=== PATIENT | male | born 1990 | race Caucasian/White ===

== ENCOUNTER 2019-01-07 18:09 | Inpatient (IN) | payer OTHER ==
[~2019-01-07 18:09] MED LIST: ISOVUE-370 76%-LOCM 1 ML ONE
[2019-01-07] MEDS ORDERED: Lorazepam 2 MG/ML VIAL ONE ×2 (18:38→20:38)
[2019-01-07 18:41] LABS: #Eosinphils 0.1 thou/uL (0.0-0.7); #Lymphocytes 0.7 thou/uL (1.20-3.40); #Monocytes 0.7 thou/uL (0.11-0.59); #Neutrophils 5.6 thou/uL (1.40-6.50); %Basophils 0.3 % (0.0-1.0); %Eosinophils 1.8 % (0.0-10.0); %Lymphocytes 10.2 % (21.0-51.0); %Monocytes 10.2 % (0.0-10.0); %Neutrophils 77.4 % (42.0-75.0); Hemoglobin 14.3 g/dL (14.0-18.0); Mean Corpuscular HGB CONC 34.8 g/dL (32.0-36.0); Mean Corpuscular Hemoglobin 31.4 pg (27.0-31.0); Mean Corpuscular Volume 90.3 fL (78.0-98.0); Mean Platelet Volume 7.7 fL (7.4-10.4); Platelet Count 185 thou/uL (130-400); RBC Distribution Width 11.5 % (11.5-14.5); Red Blood Cell (RBC) Count 4.55 mill/uL (4.70-6.10); White Blood Cell (WBC) Count 7.3 thou/uL (4.8-10.8)
[2019-01-07 19:04] LABS: Medtox Reader # READER 4
[2019-01-07 19:05] LABS: Amphetamine Not Detected (NotDetected); Barbiturates Screen Not Detected (NotDetected); Benzodiazepine Screen Not Detected (NotDetected); Cocaine Metabolite Screen Not Detected (NotDetected); Medtox Control Line Valid? VALID (VALID); Methadone Not Detected (NotDetected); Methamphetamine Not Detected (NotDetected); Opiate Screen Detected (NotDetected); Oxycodone Screen Not Detected (NotDetected); Phencyclidine (PCP) Not Detected (NotDetected); THC/Cannabinoid Screen Not Detected (NotDetected); Tricyclic Screen Not Detected (NotDetected)
[2019-01-07 19:05] LABS: ALT (SGPT) 40 U/L (8-55); AST (SGOT) 72 U/L (5-34); Alkaline Phosphatase 67 U/L (40-150); Anion Gap 13 mmol/L (10-20); BUN (Urea Nitrogen) 10 mg/dL (8.9-20.6); Bilirubin, Total 0.4 mg/dL (0.2-1.2); CK (CPK) 2278 U/L (30-200); Calc. Creatinine Clearance 0 mL/min (70-130); Calcium 8.9 mg/dL (7.8-10.44); Carbon Dioxide 23 mmol/L (22-29); Chloride 109 mmol/L (98-107); Estimated GFR-MDRD Greater than 90; Globulin 2.4 g/dL (2.4-3.5); Glucose 92 mg/dL (70-105); Protein, Total 6.4 g/dL (6.0-8.3); Sodium 141 mmol/L (136-145)
--- NOTE | 2019-01-07 19:48 | RAD ---
FRONTAL RADIOGRAPH CHEST 01/07/19 COMPARISON: None. HISTORY: Cough and chest pain. FINDINGS: Heart and mediastinal contours within normal limits. No pneumothorax, pleural fluid, focal consolidat ion, or alveolar edema. IMPRESSION: No acute findings. POS: [facility]
[2019-01-07] MEDS ORDERED: Zolpidem Tartrate 5 MG TAB PO PRN (22:33)
[2019-01-07] MEDS ORDERED: Ondansetron PF 4 MG/2 ML Vial IVP PRN (22:33)
--- NOTE | 2019-01-07 23:53 | HP ---
ADMITTING COMPLAINT: Chest pain. HISTORY OF PRESENT ILLNESS: This is a 28-year-old male complaining of chest pain. States that he woke up this morning with severe significant cough, shortness of breath, and chest pain. 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 Patient is incarcerated with the [place] [facility]. States that he has no other prior medical history of diabetes, hypertension, hyperlipidemia, or coronary artery disease. Denies any nausea, vomiting, diarrhea, constipation, fevers, chills, or shortness of breath, but does attest to chest pains and then occasionally in the last day or two, chest pain with shortness of breath due to exertion. Patient also states that he is unable to walk because of his foot problem and uses crutches for the last three months. Patient states that he has had a progressive worsening of his symptoms, so decided to ask the police lieutenant patrol to bring him to the ER. Patient at this point in time was seen in the ER. No family at bedside. The officers were at bedside. All questions answered. ALLERGIES: TO PENICILLIN, STATES THAT HE GETS HIVES AND HIS THROAT SWELLS UP WHEN HE DOES GET PENICILLIN. SOCIAL HISTORY: Nondrinker, nonsmoker. FAMILY HISTORY: Positive for hypertension, hyperlipidemia, diabetes mellitus, and coronary artery disease. HOME MEDICATIONS: See MAR. REVIEW OF SYSTEMS: All systems reviewed, pertinent positive in the HPI, otherwise negative. PHYSICAL EXAMINATION: GENERAL: Patient is lying in bed with cuffs comfortably. No acute discomfort. VITAL SIGNS: Blood pressure is 128/88, respiratory rate of 18, pulse of 88, O2 saturation 98% on room air, and temperature of 98. HEENT: Pupils equal, round, and reactive to light and accommodation. Oral cavity, moist and pink. Normocephalic and atraumatic. NECK: Supple and mobile. Nontender thyroid appreciated. LUNGS: Reveal bilateral lower lobe inspiratory crackles, however, otherwise clear to auscultation bilaterally. No increase in AP diameter. No respiratory distress. CARDIOVASCULAR: Reveals a slightly borderline tachycardia. S1, S2. No murmurs, rubs, or gallops appreciated. ABDOMINAL: Positive bowel sounds. Soft, nontender, and nondistended. EXTREMITIES: 2+ peripheral pulses noted. Trace pitting edema in bilateral lower extremities. NEUROLOGIC: Cranial nerves 2 through 12 intact. No loss of motor or sensory function. LABORATORY DATA: CBC within normal limits. Basic metabolic panel within normal limits. However, creatine kinase was slightly elevated at . Toxicology screen positive for opioids. No other abnormalities. ASSESSMENT AND PLAN: 1. Rhabdo, questionable. 2. Chest pain. 3. Cardiomyopathy. PLAN: 1. At this point in time, we will admit the patient to observation service. We will obtain echocardiogram to rule out any cardiomyopathy. We will also trend troponins to check for any ACS. 2. We will consult Cardiology as well. 3. Labs in the morning. 4. Patient wishes to remain a full code. 5. We will resume home medications when home med reconciliation is completed. 6. For now, we will initiate a workup mentioned above and adjust the plan of care as the patient's condition and lab results result. Case and plan discussed with the patient at length. He understood and agreed with this plan. Job ID: [id number]
[2019-01-08 00:45] LABS: Troponin I Less than 0.010 ng/mL (< 0.028)
[2019-01-08] MEDS ORDERED: Sodium Chloride 0.9% 1,000 ML IV SCH (01:35)
[2019-01-08] MEDS: Acetaminophen 325 MG TAB PO PRN ×2 (02:06→15:19)
[2019-01-08 04:12] VITALS: BMI 30.7
[2019-01-08 06:02] LABS: Anion Gap 11 mmol/L (10-20); BUN (Urea Nitrogen) 7 mg/dL (8.9-20.6); CK (CPK) 1463 U/L (30-200); Calc. Creatinine Clearance 177 mL/min (70-130); Carbon Dioxide 25 mmol/L (22-29); Chloride 108 mmol/L (98-107); Estimated GFR-MDRD Greater than 90; Glucose 100 mg/dL (70-105); Potassium 3.8 mmol/L (3.5-5.1); Sodium 140 mmol/L (136-145)
[2019-01-08 06:12] LABS: Band 2 % (5-11); Eosinophils 1 % (0-10); Lymphocytes 23 % (21-51); MDiff Complete? YES; Mean Corpuscular HGB CONC 35.3 g/dL (32.0-36.0); Mean Corpuscular Hemoglobin 31.6 pg (27.0-31.0); Mean Corpuscular Volume 89.6 fL (78.0-98.0); Mean Platelet Volume 8.2 fL (7.4-10.4); Monocytes 9 % (0-10); Neutrophil 65 % (42-75); Platelet Count 182 thou/uL (130-400); Platelet Morphology Comment Appears Adequate; RBC Distribution Width 11.6 % (11.5-14.5); RBC Morphology Normal; Red Blood Cell (RBC) Count 4.43 mill/uL (4.70-6.10); White Blood Cell (WBC) Count 4.9 thou/uL (4.8-10.8)
[2019-01-08] MEDS: Aspirin 81 mg Enteric Coated Tablet PO SCH (08:51)
[2019-01-08] MEDS: Heparin 5,000 UNITS/ML VIAL SC SCH ×2 (08:51→21:20)
--- NOTE | 2019-01-08 09:31 | CT ---
CT ANGIOGRAM OF CHEST 01/07/19 COMPARISON: None. HISTORY: Chest pain, tachycardia and abnormal EKG. TECHNIQUE: Axial CT imaging at 2.5 mm intervals through the chest with IV contrast using a CT angiogram protocol . Coronal and oblique sagittal 3D reformatted imaging obtained. FINDINGS: No axillary, hilar or mediastinal lymphadenopathy. The imaged upper abdomen appears unremarkable. No pleural, pericardial, or mediastinal fluid is seen. There is no pulmonary arterial filling defect involving the pulmonary arterial trunk or either main p ulmonary artery. Distal pulmonary arteries are slightly limited on the basis of motion artifact, part icularly within the lung bases. No convincing evidence for pulmonary arterial embolism. The lung parenchyma demonstrates no acute abnormality on either side. No endobronchial lesion is evid ent. Review of the osseous structures demonstrates no acute osseous abnormality. IMPRESSION: No evidence for a central pulmonary arterial embolism. POS: [facility]
[2019-01-08] MEDS ORDERED: Sodium Chloride 0.9% 500 ML IV SCH (10:30)
[2019-01-08] MEDS: Benzonatate 100 MG CAP PO SCH ×2 (11:24→21:19)
--- NOTE | 2019-01-08 12:02 | CON ---
DATE OF CONSULTATION: PRIMARY CARE PHYSICIAN: Unknown primary care doctor. MAIN PEDIATRIC CARDIOLOGIST: Riya Gayle MD REASON FOR CARDIOLOGY CONSULT: Chest pain. HISTORY OF PRESENT ILLNESS: Mr. Weller is a 28-year-old male with a significant history of osteomyelitis to the right fourth finger and ingrown nail to the bilateral first toes. The patient is incarcerated with [place] [facility]. He started having chest pain from Wednesday morning around 4 o'clock, heaviness to the mediastinal area, which radiates to the left chest. He started having severe cough. At this moment, he has still continued having the severe cough. At this moment, he also complained of a headache and weakness from yesterday. He denied any dizziness, lightheadedness, numbness to the left arm, or any other cardiac complaints. He does not have any medical history; however, he had attempted several suicide before with overdose and severe EtOH abuse. He never had seen by a welfare project manager before. PAST MEDICAL HISTORY: Osteomyelitis to the right fourth finger. He has a major depression before. At this moment, the patient denies any suicide desire. At this moment also, the patient has 2 officers at the bedside. PAST SURGICAL HISTORY: Amputation of the right fourth finger and ingrown toe removed to the both first toes. FAMILY HISTORY: The patient's father had a history of hypertension. The patient's mother had a disease due to the cancer. The patient's sister has hypertension after the patient's sister given . SOCIAL HISTORY: He is single. He used to chew tobacco 2 cans a day. He used to drink a lot, heavy drinker prior to stay in the care home. He denied illicit drug abuse. ALLERGIES: HE IS ALLERGIC TO PENICILLIN. HOME MEDICATIONS: None. REVIEW OF SYSTEMS: A 12-point review of systems unless otherwise mentioned in the HPI. At this moment, the patient does not have any suicide desire at this moment. He complained of the constipation. PHYSICAL EXAMINATION: VITAL SIGNS: Blood pressure 110/62, temperature 98.9, pulse is 115 with sinus tach, respiratory rate 26, and O2 saturation 99% with room air. GENERAL: The patient is alert and oriented x4. Not in acute distress, but the patient had a severe cough at this moment. HEENT: Normocephalic and atraumatic. Eyes, extraocular muscle movement intact. ENT and mouth, oral and nasal mucosa are moist without lesion. RESPIRATORY: Clear to auscultate bilaterally. He continues having severe cough. CARDIOVASCULAR: Regular rate and rhythm. Normal S1 and S2. There are no S3 or S4. No significant murmur, hives, or thrill noted. 2+ pulses in the bilateral upper and lower extremities. No edema. ABDOMEN: Soft and nontender. No mass to palpitate. Bowel sounds are positive. Carotid pulses are present without bruits or thrill. EXTREMITIES: The patient is able to move all extremities without any difficulties. The patient denies any claudication. NEUROLOGIC: The patient is alert and oriented x4. Nonfocal. PSYCHIATRIC: The patient's mood is appropriate. LABORATORY DATA: WBC 4.9, hemoglobin 14.0, hematocrit 39.7, and platelet 182. Sodium 140, potassium 3.8, BUN 7, creatinine 0.82, AST 72, and ALT 40. Creatine kinase is at 2278, 2022, and 1463. Troponin is negative. Chest x-ray show no acute finding. The patient had a chest thoracic CTA, which shows no evidence for central pulmonary arterial embolism. ASSESSMENT AND PLAN: 1. Atypical chest pain. With elevated creatine kinase, the patient's EKG is normal. The patient has a normal troponin level and the patient is having more pain with palpation to the mediastinal area and with cough. The patient's symptoms could be from musculoskeletal in nature. If the patient's echocardiogram showed normal, the patient is possibly able to discharge today. 2. Elevated creatine kinase. We like to go ahead to give 500 mL normal saline bolus again. 3. Tachycardia. The patient's telemetry record shows that the patient has been in sinus tach with heart rate of 100 to 110s. We would like to go ahead to give 500 mL bolus in this moment. 4. Depression. At this moment, the patient's depression is stable according to the patient's health and the patient does not have any desire for suicide or harm himself. Thank you very much for allowing the Cardiology Service to participate in the care of this patient. We will follow along the patient's care team and make further recommendations as appropriate. Job ID: [id number]
--- NOTE | 2019-01-08 12:58 | RAD ---
PORTABLE CHEST: DATE: 01/08/2019. PROVIDED CLINICAL HISTORY: Chest pain. FINDINGS: Comparison 01/07/2019. Cardiac and mediastinal silhouette is within normal limits. No focal consolid ation, pleural fluid, or pneumothorax apparent. IMPRESSION: No evidence for an acute cardiopulmonary process. POS: [facility]
[2019-01-08] MEDS: Morphine 4 MG/ML VIAL SLOW IVP PRN (16:58)
--- NOTE | 2019-01-08 17:22 | PDOC.PN ---
- Subjective Encounter Start Date: 01/08/19 Encounter Start Time: 17:20 Pt seen for followup re: sepsis. Chest pain is better. No nausea or vomiting. - Objective Resuscitation Status - Order Detail: 01/07/19 22:33 Resuscitation Status Routine Resuscitation Status: FULL: Full Resuscitation Discussed with: patient MAR Reviewed: Yes Vital Signs & Weight: Vital Signs (12 hours) Temp Pulse Resp BP Pulse Ox 01/08/19 16:00 99.9 F H 101 H 26 H 110/62 96 01/08/19 12:00 100.4 F H 112 H 24 H 113/65 97 01/08/19 08:00 98.9 F 115 H 26 H 110/62 99 Weight Weight 201 lb 12.8 oz I&O: 01/07/19 01/08/19 01/09/19 06:59 06:59 06:59 Intake Total 240 Balance 240 Result Diagrams: 01/08/19 05:03 01/08/19 05:03 EKG Reviewed by me: Yes (Tele: sinus tachycardia) Phys Exam - Physical Examination Constitutional: NAD HEENT: moist MMs, sclera anicteric, oral pharynx no lesions, 2+ tonsils Neck: no nodes, no JVD, supple, full ROM Respiratory: clear to auscultation bilateral Cardiovascular: no rub S1, S2, tachy, reg Gastrointestinal: soft, non-tender, no distention, positive bowel sounds Neurological: moves all 4 limbs Psychiatric: normal affect, A&O x 3 Deviation from normal: wounds as documented Dx/Plan (1) Sepsis Code(s): A41.9 - SEPSIS, UNSPECIFIED ORGANISM Status: Acute Comment: Likely due to toe infection. Will start empiric antibiotics. Will order blood cultures and urine studies. Will check X-rays of toes to r/o osteomyelitis. (2) Chest pain Code(s): R07.9 - CHEST PAIN, UNSPECIFIED Status: Acute Comment: appreciate cardiology service input (3) Depression Code(s): F32.9 - MAJOR DEPRESSIVE DISORDER, SINGLE EPISODE, UNSPECIFIED Status : Chronic Comment: moderate, stable - Plan * . Review of Systems - Review of Systems Constitutional: fever. negative: chills, sweats, weakness, malaise Cardiovascular: chest pain. negative: palpitations, orthopnea, paroxysmal nocturnal dyspnea, edema, light headedness Gastrointestinal: negative: Nausea, Vomiting, Abdominal Pain, Diarrhea, Constipation, Melena, Hematochezia Genitourinary: negative: Dysuria, Frequency, Incontinence, Hematuria, Retention Musculoskeletal: Foot Pain Neurological: negative: Weakness, Numbness, Incoordination, Change in Speech, Confusion, Seizures - Medications/Allergies Allergies/Adverse Reactions: Allergies Allergy/AdvReac Type Severity Reaction Status Date / Time Penicillins Allergy Verified 01/08/19 01:44 Medications: Current Medications Acetaminophen (Tylenol) 650 mg PO Q4H PRN PRN Reason: Headache/Fever/Mild Pain (1-3) Last Admin: 01/08/19 15:19 Dose: 650 mg Albuterol/Ipratropium (Duoneb) 3 ml NEB [id number] PRN PRN Reason: SOB &/or Wheezing Aspirin (Ecotrin) 81 mg PO DAILY [facility] Last Admin: 01/08/19 08:51 Dose: 81 mg Benzonatate (Tessalon) 100 mg PO 0400,1200,2000 [facility] Last Admin: 01/08/19 11:24 Dose: 100 mg Heparin Sodium (Porcine) (Heparin) 5,000 units SC BID [facility] Last Admin: 01/08/19 08:51 Dose: 5,000 units Vancomycin HCl 1 gm/ Device 200 mls @ 200 mls/hr IVPB Q12H [facility] Miscellaneous Medication (Pharmacy To Dose) 1 each IVPB ONE PRN PRN Reason: Pharmacy to dose Morphine Sulfate (Morphine) 2 mg SLOW IVP Q6H PRN PRN Reason: Moderate to Severe Pain (6-10) Last Admin: 01/08/19 16:58 Dose: 2 mg Ondansetron HCl (Zofran) 4 mg IVP Q6H PRN PRN Reason: Nausea/Vomiting Sodium Chloride (Flush - Normal Saline) 10 ml IVF Q12HR PRN PRN Reason: Saline Flush Last Admin: 01/08/19 16:58 Dose: 10 ml Zolpidem Tartrate (Ambien) 5 mg PO HSPRN PRN PRN Reason: Insomnia
[2019-01-08] MEDS ORDERED: Vancomycin HCl 1 GM in Premix Bag 1 BAG IVPB SCH (17:30)
[2019-01-08] MEDS: Vancomycin HCl 1.75 GM in Sodium Chloride 0.9% 500 ML IVPB SCH (19:49)
[2019-01-09] MEDS: Benzonatate 100 MG CAP PO SCH ×3 (00:35→20:14)
[2019-01-09] MEDS: Acetaminophen 325 MG TAB PO PRN ×5 (00:35→15:46)
[2019-01-09 01:34] LABS: Bilirubin Negative (Negative); Blood, Urine Negative (Negative); Clarity CLEAR (Clear); Glucose, Urine (Dipstick) Negative (Negative); Leukocyte Negative (Negative); Nitrite Negative (Negative); Protein, Urine (Dipstick) Negative (Neg-Trace); Specific Gravity, Urine 1.015 (1.002-1.036); Urobilinogen 0.2 mg/dL (0.2-1.0); pH, Urine 6.5 (5.0-9.0)
[2019-01-09 01:36] LABS: Bacteria/HPF None Seen HPF (None Seen); Hyaline Casts/LPF 0-3 HYALINE CAST LPF (0-3 Hyaline); Pathc Cast-AUWi Flag 0.13 (0-2.49); RBC/HPF 0-3 HPF (0-3); Squamous Epithelial None Seen HPF (0-3); WBC/HPF None Seen HPF (0-3)
[2019-01-09 01:38] LABS: Urine Culture Reflex No No
[2019-01-09] MEDS: Morphine 4 MG/ML VIAL SLOW IVP PRN ×2 (03:06→15:46)
[2019-01-09] MEDS: Vancomycin HCl 1.75 GM in Sodium Chloride 0.9% 500 ML IVPB SCH ×3 (03:09→18:01)
[2019-01-09] MEDS: Heparin 5,000 UNITS/ML VIAL SC SCH ×2 (08:20→20:14)
[2019-01-09] MEDS: Aspirin 81 mg Enteric Coated Tablet PO SCH (08:21)
--- NOTE | 2019-01-09 08:44 | CON ---
DATE OF CONSULTATION: 01/08/2019 ADDENDUM: Please refer to the notes dictated by my nurse practitioner, Robyn Lock. INDICATION FOR CONSULTATION: Chest pain. HISTORY OF PRESENT ILLNESS: This is a very unfortunate 28-year-old gentleman who is incarcerated at this time, presented with chest pain. He has been using crutches to ambulate. He also developed a recent cough. He has been coughing significantly. When he coughs is when he does get the chest pain, excruciating pain when he coughs and also has pain to palpation in the anterior chest wall. His EKG is unremarkable. Cardiac enzymes are negative. However, he did have a CK of over 2000, which most likely is musculoskeletal in origin since the troponin I is normal and also his EKG is unremarkable. He had an echocardiogram today, which also shows a normal ejection fraction with trace mitral and tricuspid valve regurgitation. No other significant abnormalities were noted. At this time, his chest pain is felt to be noncardiac in nature and no further cardiac workup is indicated at this time. PAST MEDICAL HISTORY: Please refer to the notes dictated by my nurse practitioner. SOCIAL HISTORY: Please refer to the notes dictated by my nurse practitioner. FAMILY HISTORY: Please refer to the notes dictated by my nurse practitioner. REVIEW OF SYSTEMS: Please refer to the notes dictated by my nurse practitioner. MEDICATIONS: Please refer to the notes dictated by my nurse practitioner. ALLERGIES: PLEASE REFER TO THE NOTES DICTATED BY MY NURSE PRACTITIONER. PHYSICAL EXAMINATION: GENERAL: Reveals a well-developed, well-nourished gentleman. VITAL SIGNS: Blood pressure is 110/62, heart rate is 90 to 110, temperature is 98.9, and respiratory rate is 26. HEENT: Unremarkable. CHEST: Clear to auscultation. Also, chest shows pain to palpation of the left anterior chest wall. CARDIOVASCULAR: Reveals a regular rate and rhythm. Normal S1 and S2. No S3 or S4 noted. EXTREMITIES: Show no clubbing or cyanosis. The distal tip of the right ring finger has been removed, appears to be well healed. His both great toes have infections, but do not appear to be gangrenous. It appears to be relatively tender. The one around the edges of the cuticle areas appears to be infected. Also, the toenail has been removed from the right great toe. Otherwise, he is unremarkable. Pulses are present. NEUROLOGIC: He appears to be intact. He is in the bed. As I noted before, he is incarcerated and is actually in restraints from the facility. LABORATORY DATA: As noted, significantly elevated CK, it was 2270 on admission, it is now decreased down to 1463 and appears to be rhabdomyolysis. His creatinine remains normal. Kidney function is normal. His other laboratory data are within normal limits. His WBC also is not elevated, it is 4.9 and hemoglobin is 14. His platelet count is 182,000. At this time, overall cardiac evaluation appears to be normal. IMPRESSION: 1. Atypical chest pain or musculoskeletal chest pain due to significant coughing and the use of crutches. The enzymes are negative. EKG is normal. There is no indication to proceed with further cardiac workup at this time. 2. History of unknown infection of the great toes, which has been followed by Infectious Disease. 3. Coughing, which he will most likely benefit from some type of cough suppressants to decrease this and also may need some Toradol for his chest discomfort, but we would continue to monitor the CKs, check at another time when his symptoms have resolved to see whether or not the CK remains elevated, so he may have some type of myopathy, but this time the cardiac status is normal. The echocardiogram shows a normal ejection fraction. We have no further to suggest from a cardiac standpoint and I will sign off for the patient. Job ID: [id number]
--- NOTE | 2019-01-09 09:11 | RAD ---
GREAT TOE RIGHT FOOT 3 VIEWS: INDICATION: Question osteomyelitis. FINDINGS: No fracture or dislocation. No lytic or destructive process. IMPRESSION: No plain film evidence of osteomyelitis identified. POS: [facility]
--- NOTE | 2019-01-09 09:20 | RAD ---
GREAT TOE LEFT FOOT 3 VIEWS: HISTORY: Question osteomyelitis. FINDINGS: No evidence of fracture or acute osseous abnormality. Tiny subchondral cystic focus if seen involvin g the distal phalanx of the great toe. This is corticated and has benign appearance. There is no er osive change and no destructive abnormality. IMPRESSION: No plain film evidence of osteomyelitis. POS: [facility]
[2019-01-09 10:43] LABS: %Basophils 0.4 % (0.0-1.0); %Eosinophils 0.4 % (0.0-10.0); %Lymphocytes 11.2 % (21.0-51.0); %Monocytes 10.7 % (0.0-10.0); %Neutrophils 77.3 % (42.0-75.0); Mean Corpuscular HGB CONC 34.6 g/dL (32.0-36.0); Mean Corpuscular Hemoglobin 31.6 pg (27.0-31.0); Mean Corpuscular Volume 91.4 fL (78.0-98.0); Platelet Count 181 thou/uL (130-400); RBC Distribution Width 11.7 % (11.5-14.5); Red Blood Cell (RBC) Count 4.73 mill/uL (4.70-6.10); White Blood Cell (WBC) Count 9.1 thou/uL (4.8-10.8)
[2019-01-09 11:04] LABS: Anion Gap 12 mmol/L (10-20); BUN (Urea Nitrogen) 7 mg/dL (8.9-20.6); CK (CPK) 545 U/L (30-200); Calc. Creatinine Clearance 181 mL/min (70-130); Calcium 9.2 mg/dL (7.8-10.44); Carbon Dioxide 23 mmol/L (22-29); Chloride 106 mmol/L (98-107); Estimated GFR-MDRD Greater than 90; Glucose 136 mg/dL (70-105); Potassium 3.8 mmol/L (3.5-5.1); Sodium 137 mmol/L (136-145)
--- NOTE | 2019-01-09 14:19 | CON ---
DATE OF CONSULTATION: 01/09/2019 REASON FOR CONSULTATION: Possible sepsis. HISTORY OF PRESENT ILLNESS: A 28-year-old, who is admitted for the first time to [facility] and has a history of chronic nail infections with paronychia of both the right and left first toes. Reportedly had osteomyelitis of the tip of the left first toe, which was treated at [facility] and apparently had a partial resection of the distal aspect and he also had a problem with his right hand, I believe the fourth digit, which required partial amputation too. On the day of admission, he developed cough, chest pain, and shortness of breath. Chest pain was somewhat pleuritic in nature and he was brought into the hospital, he was tachycardic and had a temperature elevation and is admitted to the observation area. Some headaches intermittently. No sore throat, odynophagia, or dysphagia. Moderate toothache intermittently. He has back pain in the mid-lower thoracic region for the past 3 days, which he gauges at 7/10 in the scale. No abdominal pain. No urinary difficulties. No diarrhea. PAST MEDICAL HISTORY: Chronic nail bed infections, paronychia, previous osteomyelitis of the first toe distal aspect, which required a partial amputation and amputation of the fourth digit of right hand. ALLERGIES: PENICILLIN WITH HIVES AND ANGIOEDEMA. SOCIAL HISTORY: He is currently at [facility]. No smoking history. CURRENT MEDICATION LIST: Includes; 1. Tylenol. 2. DuoNeb. 3. Ecotrin. 4. Tessalon. 5. Heparin. 6. Zofran. 7. Vancomycin. PHYSICAL EXAMINATION: VITAL SIGNS: Temperature max 100.7, blood pressure 118/65, pulse 95, respirations 16 to 24, and O2 saturation 97%. GENERAL: He is coughing intermittently during the examination. A little bit diaphoretic. SKIN: Shows the left-sided toe swelling with complete loss of the toenail and nail bed with some yellow exudate close to the base of the nail interface with the remainder of the toe. There is erythema and swelling of the distal aspect of the first toe. The left first toe has complete loss of the toenail as well, but not nearly as much inflammatory changes. No lymphadenopathy. HEENT: Shows normal ocular movements. Sclerae are white. Pupils are equal. Conjunctivae normal. Nasal passages are normal. Oral cavity with no inflammatory changes. Teeth with significant decay and gum disease. NECK: Supple. No jugular vein distention. LUNGS: With scattered rhonchi. HEART: S1 and S2. Regular rate without murmurs. Tachycardic. A little bit of back tenderness in the mid thoracic area. ABDOMEN: Soft, not distended or tender. No ascites. No bladder distention. No other joint inflammatory activity. Pulses are 2+ in dorsalis pedis. NEURO: Nonfocal. His speech is fluent. He is oriented and alert. Follows commands. LABORATORY DATA: White cell count of 7.3 and now 9.1, hemoglobin 14, platelets 185, and 77% neutrophils. Sodium 137, creatinine 0.8, AST 72, and ALT 40. CK was 2200 down to 545 at this time. Urinalysis was normal. Toxicology with detected opiates. MICROBIOLOGY: Two sets of blood cultures, which are pending at this time. IMAGING DATA: Echocardiogram with estimated EF 60%, remainder of findings are not remarkable. The patient has a chest CT angio with no evidence of pulmonary embolism. ASSESSMENT: 1. Fever with respiratory symptoms. 2. Chronic right and left first toenail bed inflammatory changes, prior osteomyelitis of the left first toe, which was managed with amputation and antimicrobial therapy and now with persistence of inflammatory changes seen particularly on the left first toe. DISCUSSION: Differential diagnosis includes a respiratory tract infection, probably due to a viral pathogen versus possibility of bacteremia from the toenail site left side with osteomyelitis and secondary respiratory tract changes. Monitor blood cultures. Submit respiratory virus PCR panel and MRI of the left foot to evaluate the distal phalanx in view of the chronic swelling and inflammatory changes. Job ID: [id number]
--- NOTE | 2019-01-09 14:34 | PDOC.PN ---
- Subjective Encounter Start Date: 01/09/19 Encounter Start Time: 08:00 Pt seen for followup re: sepsis. Cough+, no sputum. - Objective Resuscitation Status - Order Detail: 01/07/19 22:33 Resuscitation Status Routine Resuscitation Status: FULL: Full Resuscitation Discussed with: wendy SALINAS Reviewed: Yes Vital Signs & Weight: Vital Signs (12 hours) Temp Pulse Resp BP BP Pulse Ox 01/09/19 11:28 98.5 F 95 24 H 118/65 97 01/09/19 07:09 100.7 F H 106 H 16 106/57 L 95 01/09/19 03:14 99.1 F 101 H 20 114/59 L 93 L Weight Admit Weight 201 lb 12.8 oz Weight 201 lb 12.8 oz I&O: 01/08/19 01/09/19 01/10/19 06:59 06:59 06:59 Intake Total 240 1480 Output Total 3000 Balance 240 -1520 Result Diagrams: 01/09/19 10:13 01/09/19 10:13 EKG Reviewed by me: Yes (Tele: NSR) Phys Exam - Physical Examination Constitutional: NAD HEENT: moist MMs, sclera anicteric, oral pharynx no lesions, 2+ tonsils Neck: no nodes, no JVD, supple, full ROM Respiratory: clear to auscultation bilateral Cardiovascular: RRR, no rub S1, S2 Gastrointestinal: soft, non-tender, no distention, positive bowel sounds Neurological: moves all 4 limbs Psychiatric: normal affect, A&O x 3 Deviation from normal: Wounds as documented Dx/Plan (1) Sepsis Code(s): A41.9 - SEPSIS, UNSPECIFIED ORGANISM Status: Acute Comment: Continue empiric antibiotics, follow cultures (2) Depression Code(s): F32.9 - MAJOR DEPRESSIVE DISORDER, SINGLE EPISODE, UNSPECIFIED Status : Chronic Comment: moderate, stable (3) Chest pain Code(s): R07.9 - CHEST PAIN, UNSPECIFIED Status: Resolved - Plan continue antibiotics * . Review of Systems - Review of Systems Constitutional: negative: fever, chills, sweats, weakness, malaise Respiratory: Cough, Dry. negative: Shortness of Breath, Hemoptysis, SOB with Excertion, Pleuritic Pain, Sputum, Wheezing Cardiovascular: negative: chest pain, palpitations, orthopnea, paroxysmal nocturnal dyspnea, edema, light headedness Gastrointestinal: negative: Nausea, Vomiting, Abdominal Pain, Diarrhea, Constipation, Melena, Hematochezia Genitourinary: negative: Dysuria, Frequency, Incontinence, Hematuria, Retention - Medications/Allergies Allergies/Adverse Reactions: Allergies Allergy/AdvReac Type Severity Reaction Status Date / Time Penicillins Allergy Verified 01/08/19 01:44 Medications: Current Medications Acetaminophen (Tylenol) 650 mg PO Q4H PRN PRN Reason: Headache/Fever/Mild Pain (1-3) Last Admin: 01/09/19 12:10 Dose: 650 mg Albuterol/Ipratropium (Duoneb) 3 ml NEB V2IP-CO PRN PRN Reason: SOB &/or Wheezing Aspirin (Ecotrin) 81 mg PO DAILY [facility] Last Admin: 01/09/19 08:21 Dose: 81 mg Benzonatate (Tessalon) 100 mg PO 0400,1200,2000 [facility] Last Admin: 01/09/19 12:10 Dose: 100 mg Heparin Sodium (Porcine) (Heparin) 5,000 units SC BID [facility] Last Admin: 01/09/19 08:20 Dose: 5,000 units Vancomycin HCl 1.75 gm/ Sodium (Chloride) 500 mls @ 250 mls/hr IVPB 0200,1000, 1800 [facility] Last Admin: 01/09/19 10:13 Dose: 500 mls Miscellaneous Medication (Pharmacy To Dose) 0 each IVPB .VANCOMYCIN PRN PRN Reason: PHARMACY TO DOSE Morphine Sulfate (Morphine) 2 mg SLOW IVP Q6H PRN PRN Reason: Moderate to Severe Pain (6-10) Last Admin: 01/09/19 03:06 Dose: 2 mg Ondansetron HCl (Zofran) 4 mg IVP Q6H PRN PRN Reason: Nausea/Vomiting Sodium Chloride (Flush - Normal Saline) 10 ml IVF Q12HR PRN PRN Reason: Saline Flush Last Admin: 01/08/19 19:49 Dose: 10 ml Zolpidem Tartrate (Ambien) 5 mg PO HSPRN PRN PRN Reason: Insomnia
[2019-01-09] MEDS ORDERED: Gadobenate Dimeglumine 529 MG/1 ML (20ML VIAL) ONE (17:26)
[2019-01-10] MEDS: Acetaminophen 325 MG TAB PO PRN ×2 (00:10→13:54)
[2019-01-10] MEDS: Morphine 4 MG/ML VIAL SLOW IVP PRN ×2 (00:16→13:52)
[2019-01-10] MEDS: Vancomycin HCl 1.75 GM in Sodium Chloride 0.9% 500 ML IVPB SCH (01:37)
[2019-01-10] MEDS ORDERED: diphenhydrAMINE 50 MG/ML VIAL IVP SCH (02:00)
[2019-01-10] MEDS: Benzonatate 100 MG CAP PO SCH ×2 (04:18→13:54)
[2019-01-10 05:21] LABS: #Eosinphils 0.2 thou/uL (0.0-0.7); #Lymphocytes 1.9 thou/uL (1.20-3.40); #Neutrophils 3.8 thou/uL (1.40-6.50); %Basophils 0.7 % (0.0-1.0); %Eosinophils 3.5 % (0.0-10.0); %Lymphocytes 26.6 % (21.0-51.0); %Monocytes 14.2 % (0.0-10.0); Hemoglobin 13.6 g/dL (14.0-18.0); Mean Corpuscular HGB CONC 35.3 g/dL (32.0-36.0); Mean Corpuscular Hemoglobin 32.2 pg (27.0-31.0); Mean Corpuscular Volume 91.1 fL (78.0-98.0); Mean Platelet Volume 8.2 fL (7.4-10.4); Platelet Count 158 thou/uL (130-400); RBC Distribution Width 11.7 % (11.5-14.5); Red Blood Cell (RBC) Count 4.23 mill/uL (4.70-6.10); White Blood Cell (WBC) Count 6.9 thou/uL (4.8-10.8)
[2019-01-10 05:40] LABS: Anion Gap 9 mmol/L (10-20); BUN (Urea Nitrogen) 9 mg/dL (8.9-20.6); CK (CPK) 264 U/L (30-200); Calc. Creatinine Clearance 186 mL/min (70-130); Calcium 8.7 mg/dL (7.8-10.44); Carbon Dioxide 27 mmol/L (22-29); Chloride 107 mmol/L (98-107); Estimated GFR-MDRD Greater than 90; Glucose 79 mg/dL (70-105); Potassium 4.1 mmol/L (3.5-5.1); Sodium 139 mmol/L (136-145)
[2019-01-10] MEDS: Aspirin 81 mg Enteric Coated Tablet PO SCH (09:15)
[2019-01-10] MEDS: Heparin 5,000 UNITS/ML VIAL SC SCH (09:15)
--- NOTE | 2019-01-10 09:51 | MRI ---
MRI LEFT FOREFOOT WITH AND WITHOUT IV CONTRAST: Date: 01-09-19 Provided Clinical History: Nonhealing infected toe nail of the first digit. FINDINGS: Regional marrow and muscular signal appear normal. Alignment appears anatomic. Joint spaces appear pr eserved. No regional joint effusion is evident. No abnormal contrast enhancement is evident. There is no evidence for a soft tissue fluid collection to suggest abscess. The courses of the major neurovas cular structures appear unremarkable. The dorsal extensor and plantar flexor tendons demonstrate an i ntact MR appearance. IMPRESSION: Unremarkable MRI of the left forefoot. POS: C
[2019-01-10] MEDS ORDERED: Vancomycin HCl 1.5 GM in Sodium Chloride 0.9% 250 ML 300 ML IVPB SCH (10:00)
[2019-01-10 12:15] VITALS: BP 113/63; TEMP 99
--- NOTE | 2019-01-10 14:29 | PDOC.PN ---
- Subjective Encounter Start Date: 01/10/19 Encounter Start Time: 07:40 Pt seen for followup re: sepsis. Feels better. Cough+ - Objective Resuscitation Status - Order Detail: 01/07/19 22:33 Resuscitation Status Routine Resuscitation Status: FULL: Full Resuscitation Discussed with: patient Vital Signs & Weight: Vital Signs (12 hours) Temp Pulse Resp BP Pulse Ox 01/10/19 11:26 99 F 81 18 113/63 97 01/10/19 08:10 99 01/10/19 08:00 98.5 F 71 14 106/60 99 Weight Admit Weight 201 lb 12.8 oz Weight 201 lb 12.8 oz I&O: 01/09/19 01/10/19 01/11/19 06:59 06:59 06:59 Intake Total 1480 1720 Output Total 3000 Balance -1520 1720 Result Diagrams: 01/10/19 04:32 01/10/19 04:32 Phys Exam - Physical Examination Obese HEENT: moist MMs Neck: supple Respiratory: clear to auscultation bilateral Cardiovascular: RRR Gastrointestinal: soft Neurological: moves all 4 limbs Psychiatric: normal affect Dx/Plan (1) Sepsis Code(s): A41.9 - SEPSIS, UNSPECIFIED ORGANISM Status: Acute Comment: Continue empiric antibiotics, blood cultures negative so far (2) Depression Code(s): F32.9 - MAJOR DEPRESSIVE DISORDER, SINGLE EPISODE, UNSPECIFIED Status : Chronic Comment: stable (3) Chest pain Code(s): R07.9 - CHEST PAIN, UNSPECIFIED Status: Resolved - Plan * . Review of Systems - Review of Systems Respiratory: Cough, Dry. negative: Shortness of Breath, Hemoptysis, SOB with Excertion, Pleuritic Pain, Sputum, Wheezing Cardiovascular: negative: chest pain, palpitations, orthopnea, paroxysmal nocturnal dyspnea, edema, light headedness - Medications/Allergies Allergies/Adverse Reactions: Allergies Allergy/AdvReac Type Severity Reaction Status Date / Time Penicillins Allergy Verified 01/08/19 01:44 Medications: Current Medications Acetaminophen (Tylenol) 650 mg PO Q4H PRN PRN Reason: Headache/Fever/Mild Pain (1-3) Last Admin: 01/10/19 13:54 Dose: 650 mg Albuterol/Ipratropium (Duoneb) 3 ml NEB [id number] PRN PRN Reason: SOB &/or Wheezing Aspirin (Ecotrin) 81 mg PO DAILY [facility] Last Admin: 01/10/19 09:15 Dose: 81 mg Benzonatate (Tessalon) 100 mg PO 0400,1200,2000 [facility] Last Admin: 01/10/19 13:54 Dose: 100 mg Heparin Sodium (Porcine) (Heparin) 5,000 units SC BID [facility] Last Admin: 01/10/19 09:15 Dose: 5,000 units Miscellaneous Medication (Pharmacy To Dose) 0 each IVPB .VANCOMYCIN PRN PRN Reason: PHARMACY TO DOSE Morphine Sulfate (Morphine) 2 mg SLOW IVP Q6H PRN PRN Reason: Moderate to Severe Pain (6-10) Last Admin: 01/10/19 13:52 Dose: 2 mg Ondansetron HCl (Zofran) 4 mg IVP Q6H PRN PRN Reason: Nausea/Vomiting Oseltamivir Phosphate (Tamiflu) 75 mg PO BID [facility] Stop: 01/15/19 09:01 Sodium Chloride (Flush - Normal Saline) 10 ml IVF Q12HR PRN PRN Reason: Saline Flush Last Admin: 01/08/19 19:49 Dose: 10 ml Zolpidem Tartrate (Ambien) 5 mg PO HSPRN PRN PRN Reason: Insomnia
[2019-01-10] MEDS ORDERED: Oseltamivir 75 MG CAP PO SCH ×2 (15:00→21:00)
--- NOTE | 2019-01-11 00:06 | DIS ---
DATE OF ADMISSION: 01/08/2019 DATE OF DISCHARGE: 01/10/2019 PRIMARY CARE PROVIDER: Unknown. DISCHARGE DIAGNOSES: 1. Influenza A infection. 2. Sepsis secondary to influenza A infection. 3. Chest pain. 4. Chest pain, likely secondary to musculoskeletal etiology. CONDITION OF PATIENT ON THE DAY OF DISCHARGE: Stable. I assessed Mr. Weller on the day of discharge. Please refer to my daily progress note for further details regarding this [id number] encounter. CONSULTATIONS DURING THIS HOSPITALIZATION: Dr. Gayle and Infectious Diseases, Dr. Webb. HOSPITAL COURSE: Mr. Weller is a pleasant 28-year-old gentleman, who was admitted to [facility] on 01/07/2019, for atypical chest pain. CT angiogram of the chest did not show any evidence of pulmonary embolism. He was seen by Cardiology Service, it was felt that his chest pain was secondary to musculoskeletal etiology. 2D echocardiogram showed left ventricular ejection fraction of 55% to 60%, normal right ventricular size and function, normal size left atrium, and normal size right atrium. He was also found to be in sepsis. He has chronic toe wounds. Infectious Disease Service was consulted. Left lower extremity MRI did not show any evidence of infection. He also had x-rays of bilateral toes, which did not show any evidence of infection. He also had a respiratory viral panel done, which was positive for influenza A infection. He improved hemodynamically and has been started on Tamiflu prior to [facility]. DISCHARGE MEDICATIONS: Tamiflu 75 mg 2 times a day, 9 more doses. DISCHARGE DESTINATION: [facility]. TOTAL AMOUNT OF TIME SPENT COORDINATING THIS DISCHARGE: 33 minutes. Job ID: [id number]
== END 2019-01-10 18:34 | disposition home or self-care (01) | DRG 872 ==
LOC: ERS 18:09 → 2SW 01-08 01:11 → OBSVTOIN 01-08 01:13 → 2SW 01-08 01:13
PROVIDERS: ADMIT Internal Medicine; ATTEND Internal Medicine
DX: A41.9 Sepsis, unspecified organism (principal); J10.1 Influenza due to other identified influenza virus with other respiratory manifestations; F32.9 Major depressive disorder, single episode, unspecified; Z72.0 Tobacco use; R07.89 Other chest pain; Z88.0 Allergy status to penicillin
CPT/HCPCS: 36415; 71045; 71275; 80048; 80053; 80202; 80306; 81001; 82550; 84484; 85025; 87040; 87070; 87077; 87186; 87205; 87633; 93005; 93306; 96361; 96374; 96376; A9577; J1200; J1644; J2060; J2270; J3370; J7050; Q9966